=== PATIENT | female | born 1930 | race Caucasian/White ===

== ENCOUNTER 2016-10-10 19:50 | Inpatient (IN) | payer OTHER ==
--- NOTE | 2016-10-10 20:01 | PDOC ---
History of Present Illness <Sakshi Joyner - Last Filed: 10/10/16 21:41> - General History Source: Patient Exam Limitations: No Limitations <SimeoncoronaGinny Wilson I - Last Filed: 10/10/16 22:09> - General Chief Complaint: Syncope/Near Syncope Stated Complaint: SYNCOPE Time Seen by Provider: 10/10/16 19:53 - History of Present Illness Initial Comments: 10/10/16 20:14 Patient is an 85 year old female with significant medical hx of HTN, HLD, osteoporosis and early dementia who is presenting to the ED s/p suspected fall from today. Today the patient went on a walk with her dog down a path towards her son's house. She states that she does not recall the events that followed, except that a nearby neighbor was helping to bring her to the house. The suspected fall was not witnessed nor does the patient recall the event. The patient sustained contusions to her chin and right hand. She also endorses feeling "foggy" but denies any headache. The son states that he was not home at the time and was not able to identify the neighbor or get in touch with them. He also notes that the patient has become more forgetful recently. Patient reports three falls over the past ten days. Her first fall was a mechanical fall that involved the patient tripping over her dog. The second time , the patient fell out of bed and hit her left arm on the waste basket, sustaining a contusion to the area of her right bicep. She states that falling out of bed was unusual for her and reports that she woke up once she hit the waste basket. The patient cannot recall her last tetanus shot. Denies abdominal pain, nausea, vomiting, or weakness. PAST MEDICAL HISTORY: HTN, HLD, osteoporosis, early dementia PAST SURGICAL HISTORY: no significant history FAMILY HISTORY: no pertinent history SOCIAL HISTORY: Pt lives with family and is retired. MEDICATIONS: reviewed ALLERGIES: As per nursing notes General: No fevers or chills, no weakness, no weight loss HEENT: No change in vision. No sore throat,. No ear pain CardioVascular: No chest pain or shortness of breath Respiratory:No cough, or wheezing. Gastrointestinal: no nausea, vomiting, diarrhea or constipation, No rectal bleeding Genitourinary: No dysuria, hematuria, or frequency Musculoskeletal: No joint or muscle pain or swelling Neurologic: Loss of consciousness. No headache, vertigo Psychiatric: nor depression Skin: Bruising to chin, right hand, and left arm. No rashes Endocrine: no increased thirst or abnormal weight change Allergic: no skin or latex allergy All other systems reviewed and normal General: Well-nourished well-developed individual, no acute distress HEENT: Large contusion with soft tissue swelling over the right side of the mandible including the anterior mandible. Tenderness on palpation. No crepitus. Throat: Normal, tonsils normal, no erythema or exudate Neck: Supple, no meningeal signs, no lymphadenopathy Eyes::Pupils equal reactive and round, extraocular motion intact Chest: Nontender to palpation Cardiac: S1-S2 normal, regular rate and rhythm, no murmurs rubs or gallops Respiratory: Lungs clear to auscultation bilateral Abdomen: Soft, nondistended, normal bowel sounds, nontender to palpation diffusely Right Hand: Swelling and ecchymosis over the fifth metacarpal with some tenderness on palpation. Neurovascular intact. Extremities: Left upper arm ecchymosis and swelling of the soft tissue, no bony tenderness. Warm, dry, no cyanosis, clubbing, or edema Skin: No rashes Neuro: Alert and oriented x3, nonfocal exam, grossly intact, normal gait Psych: Normal mood and affect (Sakshi Joyner) 10/10/16 21:04 A portion of this note was documented by scribe services under my direction. I have reviewed the details of the note, within reason, and agree with the documentation. The case summary and management plan written by me. Assessment and plan: This is an 85-year-old female who had a syncopal event prior to coming in. Patient is unable to recall what happened but was out walking her dog and the neighbor brought her back to her son's place where she is visiting. Patient remembers taking the dog out for a walk but does not remember falling or being brought back to her son's place. Patient was noted to have several contusions of her face and hand. Patient had a workup EKG showed sinus rhythm with marked sinus arrhythmia and one long Pause on the EKG. Chest x-ray shows no acute pathology Mandible shows no acute pathology Right hand shows a fracture at the base of the fifth metacarpal that is nondisplaced. Head CT shows no acute pathology just some atrophy consistent with age Otherwise workup unremarkable Patient will be admitted to a inpatient telemetry bed under the hospitalist service. (Ginny Rankin I) Past History <Sakshi Joyner - Last Filed: 10/10/16 21:41> <Ginny Rankin I - Last Filed: 10/10/16 22:09> - Past Medical History Allergies/Adverse Reactions: Allergies Allergy/AdvReac Type Severity Reaction Status Date / Time No Known Allergies Allergy Unverified 10/10/16 19:57 Home Medications: Ambulatory Orders Atorvastatin Ca 10/10/16 Metoprolol Succinate 10/10/16 Restasis 10/10/16 - Vital Signs Last Vital Signs Temp Pulse Resp BP Pulse Ox 98.1 F 81 16 161/87 97 10/10/16 19:58 10/10/16 19:58 10/10/16 19:58 10/10/16 19:58 10/10/16 19:58 Heart Score/ECG Review <Sakshi Joyner - Last Filed: 10/10/16 21:41> <Ginny Rankin I - Last Filed: 10/10/16 22:09> #1 10/10/16 21:42 Poor data quality, interpretation may be adversely affected Sinus rhythm at 76 bpm with marked sinus arrhythmia Possible Left atrial enlargement Abnormal ECG (Sakshi Joyner) ED Treatment Course - LABORATORY CBC & Chemistry Diagram: 10/10/16 20:17 10/10/16 20:17 <Sakshi Joyner - Last Filed: 10/10/16 21:41> - LABORATORY CBC & Chemistry Diagram: 10/10/16 20:17 10/10/16 20:17 <Ginny Rankin I - Last Filed: 10/10/16 22:09> - ADDITIONAL ORDERS Additional order review: Laboratory Results 10/10/16 10/10/16 10/10/16 20:20 20:17 20:17 Sodium 141 Potassium 3.9 Chloride 106 Carbon Dioxide 27 Anion Gap 8 BUN 22 H Creatinine 0.7 Creat Clearance w eGFR > 60 Random Glucose 110 H Calcium 9.5 Total Bilirubin 0.4 AST 25 ALT 14 Alkaline Phosphatase 45 Creatine Kinase 122 Troponin I < 0.03 L Total Protein 7.1 Albumin 4.1 Urine Color Yellow Urine Appearance Cloudy Urine pH 5.5 Ur Specific [place] 1.025 Urine Protein 2+ H Urine Glucose (UA) Negative Urine Ketones Trace Urine Blood 3+ H Urine Nitrite Positive Urine Bilirubin Negative Urine Urobilinogen 1.0 e.u/dl Ur Leukocyte Esterase 2+ H 10/10/16 20:17 RBC 4.51 MCV 92.3 MCHC 34.0 RDW 12.5 MPV 7.4 L Neutrophils % 60.0 Lymphocytes % 28.9 Monocytes % 8.8 Eosinophils % 1.9 Basophils % 0.4 - RADIOLOGY Radiology Studies Ordered: Category Date Time Status HEAD CT WITHOUT CONTRAST [CT] Stat CT Scan 10/10/16 20:02 Completed CHEST X-RAY PORTABLE* [RAD] Stat Radiology 10/10/16 20:02 Taken HAND- RIGHT [RAD] Stat Radiology 10/10/16 21:02 Taken MANDIBLE COMPLETE [RAD] Stat Radiology 10/10/16 20:12 Taken Radiograph Interpretation: 10/10/16 21:[address] Impression: Mild atrophy without evidence of acute intracranial pathology. Reported By: Luis Ellsworth MD (Sakshi Joyner) *DC/Admit/Observation/Transfer <Sakshi Joyner - Last Filed: 10/10/16 21:41> - Discharge Dispostion Admit: Yes <Ginny Rankin I - Last Filed: 10/10/16 22:09> Diagnosis at time of Disposition: Multiple contusions Syncope Qualifiers: Syncope type: unspecified Qualified Code(s): R55 - Syncope and collapse - Discharge Dispostion Condition at time of disposition: Stable - Referrals Referrals: STAFF,NOT ON [Primary Care Provider] - - Attestations Scribe Attestion: 10/10/16 20:27 Documentation prepared by Sakshi Joyner, acting as medical stenographer for Ginny Rankin MD. (Sakshi Joyner)
[2016-10-10 20:32] LABS: BASOPHIL 0.4 % (0-2.0); EOSINOPHIL 1.9 % (0-4.5); MCH 31.4 pg (25.7-33.7); MEAN CELL VOLUME 92.3 fl (80-96); MEAN PLT VOLUME 7.4 fl (7.5-11.1); PLATELET COUNT 228 K/MM3 (134-434); RDW 12.5 % (11.6-15.6); WHITE BLOOD COUNT 6.7 K/mm3 (4.0-10.8)
[2016-10-10 20:48] LABS: ALBUMIN 4.1 g/dl (3.5-5.0); ALK PHOS 45 U/L (32-92); ANION GAP 8 (8-16); CALCIUM 9.5 mg/dl (8.4-10.2); CO2 27 mmol/L (22-28); COCKROFT - GAULT 52.3175; CREATININE 0.7 mg/dl (0.6-1.3); GLUCOSE,RANDOM 110 mg/dl (74-106); SGOT/AST 25 U/L (10-42); SGPT/ALT 14 U/L (10-40); TOT PROT 7.1 g/dl (6.4-8.3)
[2016-10-10 20:49] LABS: CPK(DFH) 122 IU/L (26-140)
[2016-10-10 20:58] LABS: TROPONIN I (DFP) < 0.03 ng/ml (0.03-0.50)
[2016-10-10 21:19] LABS: PH,URINE 5.5 (4.5-8); URINE APPEARANCE Cloudy; URINE BILIRUBIN Negative (NEGATIVE); URINE BLOOD 3+ (NEGATIVE); URINE COLOR YELLOW; URINE GLUCOSE (UA) Negative (NEGATIVE); URINE KETONE Trace (NEGATIVE); URINE LEUK ESTERASE 2+ (NEGATIVE); URINE NITRITE Positive (NEGATIVE); URINE PROTEIN 2+ (NEGATIVE); URINE UROBILINOGEN 1.0 E.U/dl (0.2-1.0)
[2016-10-10 21:43] LABS: BILIRUBIN,TOTAL 0.4 mg/dl (0.2-1.0)
--- NOTE | 2016-10-10 22:12 | PDOC ---
*Physical Exam - Vital Signs Last Vital Signs Temp Pulse Resp BP Pulse Ox 98.1 F 81 16 161/87 97 10/10/16 19:58 10/10/16 19:58 10/10/16 19:58 10/10/16 19:58 10/10/16 19:58 ED Treatment Course - LABORATORY CBC & Chemistry Diagram: 10/10/16 20:17 10/10/16 20:17 - ADDITIONAL ORDERS Additional order review: Laboratory Results 10/10/16 10/10/16 10/10/16 20:20 20:17 20:17 Sodium 141 Potassium 3.9 Chloride 106 Carbon Dioxide 27 Anion Gap 8 BUN 22 H Creatinine 0.7 Creat Clearance w eGFR > 60 Random Glucose 110 H Calcium 9.5 Total Bilirubin 0.4 AST 25 ALT 14 Alkaline Phosphatase 45 Creatine Kinase 122 Troponin I < 0.03 L Total Protein 7.1 Albumin 4.1 Urine Color Yellow Urine Appearance Cloudy Urine pH 5.5 Ur Specific [place] 1.025 Urine Protein 2+ H Urine Glucose (UA) Negative Urine Ketones Trace Urine Blood 3+ H Urine Nitrite Positive Urine Bilirubin Negative Urine Urobilinogen 1.0 e.u/dl Ur Leukocyte Esterase 2+ H 10/10/16 20:17 RBC 4.51 MCV 92.3 MCHC 34.0 RDW 12.5 MPV 7.4 L Neutrophils % 60.0 Lymphocytes % 28.9 Monocytes % 8.8 Eosinophils % 1.9 Basophils % 0.4 - RADIOLOGY Radiology Studies Ordered: Category Date Time Status HEAD CT WITHOUT CONTRAST [CT] Stat CT Scan 10/10/16 20:02 Completed CHEST X-RAY PORTABLE* [RAD] Stat Radiology 10/10/16 20:02 Taken HAND- RIGHT [RAD] Stat Radiology 10/10/16 21:02 Taken MANDIBLE COMPLETE [RAD] Stat Radiology 10/10/16 20:12 Taken Progress Note - Progress Note Progress Note: Procedure note OCL ulnar gutter splint placed on right hand by Natasha Neurovascular post splint application intact. *DC/Admit/Observation/Transfer Diagnosis at time of Disposition: Multiple contusions Syncope Qualifiers: Syncope type: unspecified Qualified Code(s): R55 - Syncope and collapse Closed fracture of right hand Qualifiers: Encounter type: initial encounter Qualified Code(s): S62.91XA - Unspecified fracture of right wrist and hand, initial encounter for closed fracture - Discharge Dispostion Condition at time of disposition: Stable Decision to Admit order Date/Time: Decision to Admit Order Category Date Time Status Decision to Admit to Hospital Routine Admission 10/10/16 22:09 Active - Referrals Referrals: STAFF,NOT ON [Primary Care Provider] - - Patient Instructions - Post Discharge Activity
[2016-10-10 22:39] LABS: URINE RBC >100 /hpf (0-3); URINE WBC 50-100 (3-5)
[2016-10-10 22:40] LABS: URINE BACTERIA FEW /hpf (NEGATIVE)
[2016-10-10] MEDS ORDERED: ACETAMINOPHEN 325 MG TABLET (FP) PO ONE (23:18)
[2016-10-10] MEDS ORDERED: ACETAMINOPHEN 325 MG TABLET (FP) ONE (23:22)
[2016-10-11 00:24] VITALS: BMI 21.0
[2016-10-11] MEDS ORDERED: SODIUM CHLORIDE 1,000 ML IV SCH (00:30)
[2016-10-11] MEDS: CEFTRIAXONE 50 ML IVPB SCH ×2 (00:36→09:07)
--- NOTE | 2016-10-11 00:38 | HP ---
CHIEF COMPLAINT: syncope PCP: noemy HISTORY OF PRESENT ILLNESS: This is a 85 year old female with a past medical history of HTN, HLD, osteoporosis, early dementia who presented to the ED s/p likely syncopal episode. Pt remembers going out for a walk with the dog and then remembers walking down the hill towards her son's house and being inside and a neighbor having helped her but does not recall events in between. Pt sustained a bruise on her chin and an injury to her right hand during the missed time. Xrays revealed a 5th metacarpal fracture. Pt also reports 2 other falls in the last 2 weeks, one when she tripped and fell while walking the dog and another when she fell out of bed, waking up when her arm hit the wastebasket on the floor. Pt reports that she is feeling well on exam. Denies CP, SOB, palpitations, abdominal pain, N/V/D. She does report some constipation yesterday but did have a BM today. Pt denies dysuria; states she always has frequency but does report something hasn't been right with her urination. ER course was notable for: (1) fracture R 5th metacarpal (2) CT head without acute changes (3) troponin negative Recent Travel: pt denies PAST MEDICAL HISTORY: HTN HLD osteoporosis early dementia denies h/o irregular heartbeat Social History: Smoking: Quit 30 years ago Alcohol: 1-2 glasses of wine daily Drugs: pt denies Family History: mother age 83, old age father age 50, cirrhosis due to a "bad blood transfusion", no ETOH abuse sister with cerebral palsy 2 children alive and well Allergies No Known Allergies Allergy (Unverified 10/10/16 19:57) HOME MEDICATIONS: 3 Medication Instructions Recorded Lipitor 20 mg PO HS 10/10/16 Metoprolol Tartrate 25 mg PO BID 10/10/16 Restasis 1 drop PRN 10/10/16 Calcium Magnesium + D Tablet 1 tab PO DAILY 10/11/16 Citalopram HBr 10 mg PO DAILY 10/11/16 Omeprazole 40 mg PO DAILY 10/11/16 REVIEW OF SYSTEMS CONSTITUTIONAL: Absent: fever, chills, diaphoresis, generalized weakness, malaise, loss of appetite, weight change HEENT: Absent: rhinorrhea, nasal congestion, throat pain, throat swelling, difficulty swallowing, mouth swelling, ear pain, eye pain, visual changes CARDIOVASCULAR: Present: syncope Absent: chest pain, palpitations, irregular heart rate, lightheadedness, peripheral edema RESPIRATORY: Absent: cough, shortness of breath, dyspnea with exertion, orthopnea, wheezing, stridor, hemoptysis GASTROINTESTINAL: Absent: abdominal pain, abdominal distension, nausea, vomiting, diarrhea, constipation, melena, hematochezia GENITOURINARY: Absent: dysuria, frequency, urgency, hesitancy, hematuria, flank pain, genital pain MUSCULOSKELETAL: Present: R hand pain Absent: myalgia, arthralgia, joint swelling, back pain, neck pain SKIN: Present: ecchymosis right chin Absent: rash, itching, pallor HEMATOLOGIC/IMMUNOLOGIC: Absent: easy bleeding, easy bruising, lymphadenopathy, frequent infections ENDOCRINE: Absent: unexplained weight gain, unexplained weight loss, heat intolerance, cold intolerance NEUROLOGIC: Absent: headache, focal weakness or paresthesias, dizziness, unsteady gait, seizure, mental status changes, bladder or bowel incontinence PSYCHIATRIC: Absent: anxiety, depression, suicidal or homicidal ideation, hallucinations. PHYSICAL EXAMINATION Vital Signs - 24 hr 3 10/10/16 10/10/16 10/11/16 23:20 23:51 00:31 Temperature 98.6 F Pulse Rate 87 Pulse Rate [ 87 Apical] Respiratory 16 16 18 Rate Blood Pressure 125/62 Blood Pressure 122/62 [Arm] O2 Sat by Pulse 97 97 Oximetry (%) GENERAL: Awake, alert, and fully oriented, in no acute distress. HEAD: Normal with no signs of trauma. EYES: Pupils equal, round and reactive to light, extraocular movements intact, sclera anicteric, conjunctiva clear. No lid lag. EARS, NOSE, THROAT: Ears normal, nares patent, oropharynx clear without exudates. Moist mucous membranes. Ecchymosis noted to right chin with mild STS NECK: Normal range of motion, supple without lymphadenopathy, JVD, or masses. LUNGS: Breath sounds equal, clear to auscultation bilaterally. No wheezes, and no crackles. No accessory muscle use. HEART: Regular rate and rhythm, normal S1 and S2 without murmur, rub or gallop. ABDOMEN: Soft, nontender, not distended, normoactive bowel sounds, no guarding, no rebound, no masses. No hepatomegaly or splenomegaly. MUSCULOSKELETAL: Normal range of motion at all joints. No bony deformities or tenderness. No CVA tenderness. UPPER EXTREMITIES: 2+ pulses, warm, well-perfused. No cyanosis. No clubbing. No peripheral edema. Right hand wrist and forearm immobilized in ulnar gutter. No apparent swelling of fingers LOWER EXTREMITIES: 2+ pulses, warm, well-perfused. No calf tenderness. No peripheral edema. NEUROLOGICAL: Cranial nerves II-XII intact. Normal speech. Normal gait. PSYCHIATRIC: Cooperative. Good eye contact. Appropriate mood and affect. SKIN: Warm, dry, normal turgor, no rashes or lesions noted, normal capillary refill. Laboratory Results - last 24 hr 3 10/10/16 10/10/16 10/10/16 20:17 20:17 20:17 WBC 6.7 RBC 4.51 Hgb 14.1 Hct 41.6 MCV 92.3 MCHC 34.0 RDW 12.5 Plt Count 228 MPV 7.4 L Neutrophils % 60.0 Lymphocytes % 28.9 Monocytes % 8.8 Eosinophils % 1.9 Basophils % 0.4 Sodium 141 Potassium 3.9 Chloride 106 Carbon Dioxide 27 Anion Gap 8 BUN 22 H Creatinine 0.7 Creat Clearance w eGFR > 60 Random Glucose 110 H Calcium 9.5 Total Bilirubin 0.4 AST 25 ALT 14 Alkaline Phosphatase 45 Creatine Kinase 122 Troponin I < 0.03 L Total Protein 7.1 Albumin 4.1 Urine Color Urine Appearance Urine pH Ur Specific [place] Urine Protein Urine Glucose (UA) Urine Ketones Urine Blood Urine Nitrite Urine Bilirubin Urine Urobilinogen Ur Leukocyte Esterase Urine RBC Urine WBC Ur Epithelial Cells Urine Bacteria 3 Urine Color Yellow 10/10/16 20:20 Urine Appearance Cloudy 10/10/16 20:20 Urine pH 5.5 (4.5-8) 10/10/16 20:20 Ur Specific [place] 1.025 (1.005-1.025) 10/10/16 20:20 Urine Protein 2+ (NEGATIVE) H 10/10/16 20:20 Urine Glucose (UA) Negative (NEGATIVE) 10/10/16 20:20 Urine Ketones Trace (NEGATIVE) 10/10/16 20:20 Urine Blood 3+ (NEGATIVE) H 10/10/16 20:20 Urine Nitrite Positive (NEGATIVE) 10/10/16 20:20 Urine Bilirubin Negative (NEGATIVE) 10/10/16 20:20 Ur Leukocyte Esterase 2+ (NEGATIVE) H 10/10/16 20:20 Urine RBC >100 /hpf (0-3) 10/10/16 20:20 Urine WBC 50-100 (3-5) 10/10/16 20:20 Ur Epithelial Cells 3-5 /HPF 10/10/16 20:20 Urine Bacteria Few /hpf (NEGATIVE) 10/10/16 20:20 ECG: Sinus rhythm with pause; rate 76, QTC 468, possible L atrial enlargement, left axis deviation Imaging Portable chest x-ray AP sitting. No prior is available for comparison. The cardiac silhouette is slightly enlarged. There is suggestion of a moderate- sized hiatus hernia and the right lower chest, medially. Mild unfolding of the aortic arch. Mild atelectatic changes in the right lung base, medially. The rest of the lung is clear. Mediastinum is osseous osseous structures appear intact Impression: There is suggestion of a moderate size hiatus hernia the right lower chest, medially with adjacent atelectatic changes in the right lung base. Correlation with PA and lateral view of the chest could be obtained for further evaluation. X-ray of the mandible, 6 views. No gross fracture is identified. Limited visualization of the TM joints enhancing could not be adequately evaluated. Visualized paranasal sinuses are well aerated Impression: Limited examination, as described above without gross evidence of a fracture. Correlate clinically for further evaluation. X-ray of the right hand, 3 views. There is evidence of osteopenia. There is a minimally displaced fracture in proximal shaft of the fifth metacarpal bone. Mild osteoarthritic changes are present. Impression: Minimally displaced fracture in proximal shaft of the fifth metacarpal bone. CT scan of the brain without intravenous contrast. No prior is available for comparison. There is moderate atrophy and ventricular dilatation. No mass lesion, gross acute infarct or intracranial hemorrhage is identified. There is no shift of the midline structures. The calvarium is intact. Visualized paranasal sinuses and mastoid air cells are well aerated. Calcification of the cavernous carotid arteries are present. Impression: Moderate atrophy without evidence of acute intracranial pathology ASSESSMENT/PLAN: 85yF with PMH HTN, HLD, osteoporosis, early dementia presented to the ED s/p fall, likely syncope. She is being admitted for further treatment and evaluation. Syncope - cardiac enzymes neg x 1, trend x 2 more - cardiac monitoring to r/o arrhythmia/ectopy - echocardiogram - ECG revealed one pause, cont to monitor, consider hold metoprolol if any repeat - orthostatic vital signs in AM when awakes metacarpal fracture - cont ulna gutter, elevation, ice - ortho consult UTI - ceftriaxone 1g daily, follow culture HTN - cont home metoprolol, consider reducing dose HLD - cont home lipitor osteoporosis - cont calcium, f/u with PCP DVT PPX - heparin 5000u TID FEN - NS @ 75cc/hr - BMP in am with mag and phos - low sodium diet as tolerated Dispo: Pt currently requires inpatient management of her emergent condition. Visit type - Emergency Visit Emergency Visit: Yes ED Registration Date: 10/10/16 Care time: The patient presented to the Emergency Department on the above date and was hospitalized for further evaluation of their emergent condition. - New Patient This patient is new to me today: Yes Date on this admission: 10/11/16 - Critical Care Critical Care patient: No
[2016-10-11 04:36] LABS: TROPONIN I < 0.02 ng/ml (0.00-0.05)
[2016-10-11] MEDS ORDERED: SYSTANE OU PRN (05:25)
[2016-10-11] MEDS: HEPARIN NA (PORCINE) 5,000 UNITS/ML 1ML VIAL SQ SCH ×3 (05:55→21:21)
[2016-10-11] MEDS ORDERED: ACETAMINOPHEN 325 MG TABLET (FP) ONE (06:12)
[2016-10-11] MEDS: CALCIUM 500MG/VIT-D 200 UNITS COMBO TABLET (FP) PO SCH ×2 (09:58→21:21)
[2016-10-11] MEDS: PANTOPRAZOLE 40 MG TABLET (FP) PO SCH (09:58)
[2016-10-11] MEDS: METOPROLOL TARTRATE 25 MG TABLET (FP) PO SCH ×2 (09:58→21:22)
[2016-10-11] MEDS: CITALOPRAM HYDROBROMIDE 10 MG TABLET (FP) PO SCH (09:58)
[2016-10-11] MEDS: MAGNESIUM OXIDE 400 MG TABLET (FP) PO SCH (09:58)
[2016-10-11] MEDS ORDERED: [UNRECOGNIZED DRUG - OTHER] PO SCH (10:00)
[2016-10-11] MEDS ORDERED: CALCIUM MAGNESIUM PO SCH (10:00)
--- NOTE | 2016-10-11 12:14 | PN ---
Physical Exam: SUBJECTIVE: Patient seen and examined, patient reports feeling well, reports pain to left hand denies any chest pain and shortness of breath. OBJECTIVE: patient is a 85 year old female with a past medical history of hiatal hernia, HTN, HLD, osteoporosis, and early dementia. Patient was admitted from the emergency department for syncopal episode and right hand fracture. Vital Signs Period Temp Pulse Resp BP Sys/Barnard Pulse Ox Last 24 Hr 98.4 F-98.6 F 81-95 16-19 121-136/50-62 93-97 GENERAL: The patient is awake, alert, and fully oriented, in no acute distress. HEAD: echymosis to right chin EYES: PERRL, extraocular movements intact, sclera anicteric, conjunctiva clear. No ptosis. ENT: Ears normal, nares patent, oropharynx clear without exudates, moist mucous membranes. NECK: Trachea midline, full range of motion, supple. LUNGS: Breath sounds equal, clear to auscultation bilaterally, no wheezes, no crackles, no accessory muscle use. HEART: Regular rate and rhythm, S1, S2, 2/6 systolic murmur, rub or gallop. ABDOMEN: Soft, nontender, nondistended, normoactive bowel sounds, no guarding, no rebound, no hepatosplenomegaly, no masses. EXTREMITIES: 2+ pulses, warm, well-perfused, no edema. RIGHT UPPER EXTREMITY: ulna hard splint in placed, less than 3 second capillary refill, + 3 radial pulse LEFT UPPER EXTREMITY: no deformity, less than 3 second capillary refill, + 3 radial pulse, no point tenderness noted, pain upon flexion of the left wrist. NEUROLOGICAL: Cranial nerves II through XII grossly intact. Normal speech, gait not observed. PSYCH: Normal mood, normal affect. SKIN: Warm, dry, normal turgor, no rashes or lesions noted Laboratory Results - last 24 hr 10/11/16 01:10 Creatine Kinase 104 Troponin I < 0.02 Active Medications Generic Name Dose Route Start Last Admin Trade Name Freq PRN Reason Stop Dose Admin Atorvastatin Calcium 20 mg 10/11/16 22:00 Lipitor - PO HS AIME Calcium Carbonate/Cholecalciferol 1 tab 10/11/16 10:00 10/11/16 09:58 Os-Jozef 500+D - PO 1 tab BID AIME Administration Citalopram Hydrobromide 10 mg 10/11/16 10:00 10/11/16 09:58 Celexa - PO 10 mg DAILY AIME Administration Heparin Sodium (Porcine) 5,000 unit 10/11/16 06:00 10/11/16 05:55 Heparin - SQ 5,000 unit TID AIME Administration Ceftriaxone Sodium 50 mls @ 100 mls/hr 10/11/16 00:30 10/11/16 09:07 Rocephin 1gm Ivpb (Pre-Docked) IVPB 100 mls/hr DAILY AIME Administration Magnesium Oxide 400 mg 10/11/16 10:00 10/11/16 09:58 Mag-Ox - PO 400 mg DAILY AIME Administration Metoprolol Tartrate 25 mg 10/11/16 10:00 10/11/16 09:58 Lopressor - PO 25 mg BID AIME Administration Non-Formulary Medication 1 drop 10/11/16 05:25 Systane OU QID PRN dry eyes Pantoprazole Sodium 40 mg 10/11/16 10:00 10/11/16 09:58 Protonix - PO 40 mg DAILY AIME Administration ECG: Sinus rhythm with pause; rate 76, QTC 468, possible L atrial enlargement, left axis deviation Imaging Portable chest x-ray AP: there is suggestion of a moderate size hiatus hernia the right lower chest, medially with adjacent atelectatic changes in the right lung base. X-ray of the mandible, 6 views. no gross evidence of a fracture. X-ray of the right hand, 3 views. Minimally displaced fracture in proximal shaft of the fifth metacarpal bone. CT scan of the brain without intravenous contrast: Moderate atrophy without evidence of acute intracranial pathology ASSESSMENT/PLAN: 1) card:Syncope - troponin x 2 wnl, pending 3rd - ekg reviewed,sinus rhythmn less than 1 second pause, left axis deviation - pending echo and carotid dopplers - records obtained from pt's private hazardous material specialist, Dr Dorado ([place], [place]), last lexiscan stress test 2013, no ischemia Echo (2012) diastolic dysfunction, mild mr & tr, lv WNL - orthostatic vital signs reviewed, patient is noted to be orthostatics - appreciate of input cardiology ([facility]) hypertension - continue metropolol, strict b/p monitoring hyperlipidemia - continue lipitor 2) ortho metacarpal fracture - keep ulna split in place, elevation - xray of left wrist, no fracture noted - prn tylenol - ortho (corado) consulted and following 3) UTI - continue ceftriaxone 1g daily, until urine culture is resulted DVT PPX - heparin 5000u TID - zantac FEN - low sodium diet - replete lytes prn Dispo: Pt currently requires inpatient management of her emergent condition. Visit type - Emergency Visit Emergency Visit: Yes ED Registration Date: 10/10/16 Care time: The patient presented to the Emergency Department on the above date and was hospitalized for further evaluation of their emergent condition. - New Patient This patient is new to me today: Yes Date on this admission: 10/11/16 - Critical Care Critical Care patient: Yes Total Critical Care Time (in minutes): 45 Critical Care Statement: The care of this patient involved high complexity decision making to prevent further life threatening deterioration of the patient 's condition and/or to evalute & treat vital organ system(s) failure or risk of failure. - Discharge Referral Referred to [facility] Med P.C.: No
--- NOTE | 2016-10-11 12:34 | CON.ORTH ---
Consult Consult Specialty:: Orthopedics - History of Present Illness Chief Complaint: Hand and wrist pain History of Present Illness: 85 y/o female with a PMHx significant for HTN, HLD admitted s/p multiple falls at home. Patient and her family state that within the last 10 days she has had 3 witnessed falls at home. The first was while walking her dog, the second while trying to get into bed and the 3rd while getting out of the car with groceries. The patient had had right hand pain since. Also having pain to the dorsal left wrist. She has also noted mild pain and bruising to the left shoulder. No numbness/tingling. No other complaints. Previously had a left wrist fracture. No ongoing issues since. - History Source History Provided By: Patient, Family Member Limitations to Obtaining History: No Limitations - Past Medical History Cardio/Vascular: Yes: HTN, Hyperlipdemia - Alcohol/Substance Use Hx Alcohol Use: No History of Substance Use: reports: None - Smoking History Smoking history: Former smoker Have you smoked in the past 12 months: No Home Medications - Allergies Allergies/Adverse Reactions: Allergies Allergy/AdvReac Type Severity Reaction Status Date / Time No Known Allergies Allergy Unverified 10/10/16 19:57 - Home Medications Home Medications: Ambulatory Orders Lipitor 20 mg PO HS 10/10/16 Metoprolol Tartrate 25 mg PO BID 10/10/16 Restasis 1 drop PRN 10/10/16 Calcium Magnesium + D Tablet 1 tab PO DAILY 10/11/16 Citalopram HBr 10 mg PO DAILY 10/11/16 Omeprazole 40 mg PO DAILY 10/11/16 Cefuroxime Axetil [Ceftin -] 250 mg PO BID #14 tablet 10/12/16 Family Disease History - Family Disease History Family History: Unremarkable Review of Systems - Review of Systems Constitutional: reports: No Symptoms Eyes: reports: No Symptoms HENT: reports: No Symptoms Neck: reports: No Symptoms Cardiovascular: reports: No Symptoms Respiratory: reports: No Symptoms Gastrointestinal: reports: No Symptoms Genitourinary: reports: No Symptoms Musculoskeletal: reports: Joint Pain Integumentary: reports: No Symptoms Neurological: reports: No Symptoms Physical Exam for Ortho Vital Signs: Vital Signs Temperature 98.4 F 10/11/16 06:00 Pulse Rate 95 H 10/11/16 06:10 Respiratory Rate 18 10/11/16 07:47 Blood Pressure 121/59 10/11/16 06:10 O2 Sat by Pulse Oximetry (%) 93 L 10/11/16 07:47 Constitutional: Yes: Well Nourished, No Distress, Calm Neck: Yes: WNL, Supple, Trachea Midline Cardiovascular: Yes: WNL, Regular Rate and Rhythm Respiratory: Yes: WNL, Regular Neurological: Yes: WNL, Alert, Oriented - Upper Extremity Shoulder: Yes: Left, Ecchymosis, Pain, Tenderness (proximal humerus). No: Limited ROM, Swelling Wrist: Yes: Left, Limited ROM, Pain, Swelling (dorsally), Tenderness (distal ulna and radius). No: Ecchymosis Hand: Yes: Right, Limited ROM, Pain, Swelling, Tenderness (proximal 5th metacarpal) - Affected Extremity Motor Strength: 5/5: Right Arm (LUE and RUE) Peripheral Pulses WNL: Yes Peripheral Pulses: 2+ Left Radial, 2+ Right Radial Neuro/Vascular Assessment: Yes: Warm, [place], Normal Sensation Imaging - Results X-ray: Report Reviewed, Image Reviewed (R hand x-ray demonstrating minimally displaced fracture of the base of the 5th metacarpal) Problem List - Problems (1) Closed right hand fracture Code(s): S62.91XA - UNSP FRACTURE OF RIGHT WRIST AND HAND, INIT FOR CLOS FX Qualifiers: Encounter type: initial encounter Qualified Code(s): S62.91XA - Unspecified fracture of right wrist and hand, initial encounter for closed fracture Assessment/Plan 85 y/o female with a PMHx significant for HTN and HLD admitted s/p multiple falls at home -I reviewed with the patient and her family that there is a proximal 5th metacarpal fracture present. We reviewed the relevant anatomy and that this fracture heals on its own in 6-8 weeks. The patient was put back into an ulnar gutter splint today. Continue to ice, rest and elevate the hand as needed. She will remain in the splint and follow up in 1-2 weeks with repeat x-rays of the right hand to ensure there is no further displacement. The [place] from out of the area. She will obtain a disc of the x-ray images and follow up with her own orthopedic surgeon when she returns home. -The patient is also having swelling/pain/ecchymosis to the left wrist and shoulder. X-rays were obtained, pending. -Will follow up on results. -Case discussed with Dr. Juarez who was in agreement.
[2016-10-11] MEDS: ACETAMINOPHEN 325 MG TABLET (FP) PO PRN (12:47)
--- NOTE | 2016-10-11 16:55 | EKG ---
Test Reason : Blood Pressure : / mmHG Vent. Rate : 076 BPM Atrial Rate : 076 BPM P-R Int : 160 ms QRS Dur : 080 ms QT Int : 416 ms P-R-T Axes : 040 -34 030 degrees QTc Int : 468 ms SINUS RHYTHM with non-conducted PAC POSSIBLE LEFT ATRIAL ENLARGEMENT LEFT AXIS DEVIATION ABNORMAL ECG NO PREVIOUS ECGS AVAILABLE Confirmed by JANIA BLANCAS MD ([id number]) on 10/11/2016 4:55:16 PM Referred By: YOSEF Confirmed By:JANIA BLANCAS MD
--- NOTE | 2016-10-11 17:38 | CONSULT ---
Consult Consult Specialty:: Cardiology Referred by:: Zuleyka Baca Reason for Consultation:: Syncope - History of Present Illness Chief Complaint: syncope History of Present Illness: 85 yo female with past tobacco, hx HTN, HLD, TIA 30 ya, palpitations with known APCS/PVC on holter form 05/18, normal stress tests in past (last on in 07/16), known nl EF and mild-mod AI (last echo in 04/16), known, mild carotid disease - > < 40% plaque on the right (04/16), recent falls -> 3 of them (one out of bed, one after tripping on dog an done while standing on driveway -. pt didn't remember that one to tell me), here after a presumed syncope. Pt was walking her puppy near her son's house, decided to cut through the property -. found herself in the house with the au-pair giving her some ice for her face. Reportedly a neighbour brought her in. She has no recollection of the events immediately preceding the fall/syncope. She denies baseline CP, but gets tired/dyspneic with exertion Denies recent palpitations or dizziness. She however has been very forgetful lately, per her family - History Source History Provided By: Patient - Past Medical History [employer] CUT[employer] HELPER: Yes: TIA (30 ya), Other (memory issues -. mild dementia) Cardio/Vascular: Yes: HTN, Hyperlipdemia, Other (Palpitations -. 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 Home Medications - Allergies Allergies/Adverse Reactions: Allergies Allergy/AdvReac Type Severity Reaction Status Date / Time No Known Allergies Allergy Unverified 10/10/16 19:57 - Home Medications Home Medications: Ambulatory Orders Lipitor 20 mg PO HS 10/10/16 Metoprolol Tartrate 25 mg PO BID 10/10/16 Restasis 1 drop PRN 10/10/16 Calcium Magnesium + D Tablet 1 tab PO DAILY 10/11/16 Citalopram HBr 10 mg PO DAILY 10/11/16 Omeprazole 40 mg PO DAILY 10/11/16 Family Disease History - Family Disease History Family History: Denies (premature CAD) Review of Systems - Review of Systems Constitutional: reports: Other (fatigue) Eyes: reports: No Symptoms HENT: reports: No Symptoms Neck: reports: Pain on Movement Cardiovascular: reports: Palpitations (but not recently) Respiratory: reports: SOB on Exertion Gastrointestinal: reports: No Symptoms Genitourinary: reports: No Symptoms Musculoskeletal: reports: Back Pain, Other (falls) Neurological: reports: Syncope, Weakness Psychiatric: reports: Depression Physical Exam Vital Signs: Vital Signs Temperature 98.4 F 10/11/16 06:00 Pulse Rate 95 H 10/11/16 06:10 Respiratory Rate 18 10/11/16 07:47 Blood Pressure 121/59 10/11/16 06:10 O2 Sat by Pulse Oximetry (%) 93 L 10/11/16 07:47 Constitutional: Yes: No Distress Eyes: Yes: Conjunctiva Clear HENT: Yes: Other (bruise over lover jaw/neck o the right) Cardiovascular: Yes: Regular Rate and Rhythm, Murmur (soft MARY ANNE) Respiratory: Yes: CTA Bilaterally Gastrointestinal: Yes: Normal Bowel Sounds, Soft. No: Tenderness Musculoskeletal: Yes: Other (right forearm /hand dressed) Edema: No Peripheral Pulses WNL: Yes Neurological: Yes: Alert, Oriented Psychiatric: Yes: Alert, Oriented Imaging - Results Chest X-ray: Report Reviewed, Image Reviewed EKG: Report Reviewed, Image Reviewed (SR, blocked APC) Other: Other (Tele -. SR, ST 120s, APCs -> some blocked, PVCs Echo -> Nl LV size and systolic function, mild DD, mild-mod AI, MAC with trace MR, Nl PASP) Assessment/Plan 85 yo female with the above history here with presumed syncopal episode. She has no recollection of the event (except having made the decision to take sort- cut through sons' property), making it hard to know whether she had a prodrome or not, So far, no evidence of bradyarrhythmia/pauses to explain syncope. Pt with PVCs , APCs -. some blocked. 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 Has had stress tests in past -> last one in 07/2013 was normal No evidence of structural heart disease, severe enough to explain syncope -. echo with mild-mod AI No evidence of neuro etiology either -. head CT w.o acute changes May have a UTI Has a proximal 5th metacarpal fracture -. seen by ortho -. rec. follow-up Rec: Cont monitor overnight Cont current meds Keep hydrated Check TFTs If ok overnight, may be d/jose alejandro in AM from cardiac standpoint -. plan to follo with malted milk supervisor for holter/event-recorder or ILR an dpossible repeat stress test Thanks! D/w pt and at length at bedside D/w son, Aj, on the phone D/w Zuleyka rolon
[2016-10-11 18:45] LABS: EOSINOPHIL 1.8 % (0-4.5); MCH 31.4 pg (25.7-33.7); MCHC 33.6 g/dl (32.0-36.0); MEAN CELL VOLUME 93.5 fl (80-96); MEAN PLT VOLUME 7.9 fl (7.5-11.1); NEUTROPHILS 56.2 % (42.8-82.8); PLATELET COUNT 223 K/MM3 (134-434); RDW 12.4 % (11.6-15.6); WHITE BLOOD COUNT 5.2 K/mm3 (4.0-10.8)
[2016-10-11 18:55] LABS: ALBUMIN 3.6 g/dl (3.5-5.0); ALK PHOS 42 U/L (32-92); ANION GAP 8 (8-16); BILIRUBIN,TOTAL 0.7 mg/dl (0.2-1.0); CALCIUM 9.3 mg/dl (8.4-10.2); CO2 28 mmol/L (22-28); CREATININE 0.7 mg/dl (0.6-1.3); GLUCOSE,RANDOM 103 mg/dl (74-106); MAGNESIUM 1.9 mg/dL (1.8-2.4); PHOSPHOROUS 3.9 mg/dl (2.5-4.6); SGOT/AST 22 U/L (10-42); SGPT/ALT 13 U/L (10-40); TOT PROT 6.5 g/dl (6.4-8.3)
[2016-10-11 19:18] LABS: CPK(DFH) 90 IU/L (26-140)
[2016-10-11 19:52] LABS: TROPONIN I (DFP) < 0.03 ng/ml (0.03-0.50)
[2016-10-11] MEDS ORDERED: ATORVASTATIN CA 20 MG TABLET (FP) PO SCH (22:00)
[2016-10-12] MEDS: HEPARIN NA (PORCINE) 5,000 UNITS/ML 1ML VIAL SQ SCH (07:01)
--- NOTE | 2016-10-12 07:50 | PN ---
Progress Note, Physician History of Present Illness: No events overnight. No significant arrhythmias on telemetry. - Current Medication List Current Medications: Active Medications Acetaminophen (Tylenol -) 650 mg PO Q4H PRN PRN Reason: FEVER OR PAIN Last Admin: 10/11/16 12:47 Dose: 650 mg Atorvastatin Calcium (Lipitor -) 20 mg PO HS [facility] Last Admin: 10/11/16 21:22 Dose: Not Given Calcium Carbonate/Cholecalciferol (Os-Jozef 500+D -) 1 tab PO BID [facility] Last Admin: 10/11/16 21:21 Dose: Not Given Citalopram Hydrobromide (Celexa -) 10 mg PO DAILY [facility] Last Admin: 10/11/16 09:58 Dose: 10 mg Heparin Sodium (Porcine) (Heparin -) 5,000 unit SQ TID [facility] Last Admin: 10/12/16 07:01 Dose: 5,000 unit Ceftriaxone Sodium (Rocephin 1gm Ivpb (Pre-Docked)) 50 mls @ 100 mls/hr IVPB DAILY [facility] Last Admin: 10/11/16 09:07 Dose: 100 mls/hr Magnesium Oxide (Mag-Ox -) 400 mg PO DAILY [facility] Last Admin: 10/11/16 09:58 Dose: 400 mg Metoprolol Tartrate (Lopressor -) 25 mg PO BID [facility] Last Admin: 10/11/16 21:22 Dose: 25 mg Non-Formulary Medication (Systane) 1 drop OU QID PRN PRN Reason: dry eyes Pantoprazole Sodium (Protonix -) 40 mg PO DAILY [facility] Last Admin: 10/11/16 09:58 Dose: 40 mg - Objective Vital Signs: Vital Signs Temperature 98.8 F 10/12/16 06:00 Pulse Rate 77 10/12/16 06:00 Respiratory Rate 18 10/12/16 06:00 Blood Pressure 134/51 10/12/16 06:00 O2 Sat by Pulse Oximetry (%) 95 10/11/16 22:15 Constitutional: Yes: Well Nourished, No Distress Eyes: Yes: Conjunctiva Clear, EOM Intact Cardiovascular: Yes: Regular Rate and Rhythm. No: JVD, Murmur Respiratory: Yes: CTA Bilaterally Gastrointestinal: Yes: Normal Bowel Sounds, Soft. No: Tenderness Edema: No Neurological: Yes: Alert, Oriented, Cran Nerves II-XII Intact Psychiatric: Yes: Alert, Oriented Labs: CBC, BMP 10/11/16 14:24 10/11/16 14:24 Assessment/Plan 85 yo female syncope. No significant arrhythmias noted on telemetry overnight. No evidence of ACS or CHF. Prior stress test in 07/2013 was reportedly normal. No evidence of structural heart disease, severe enough to explain syncope -> echo on 10/11 with mild-mod AR Head CT with acute changes Sustained proximal 5th metacarpal fracture -> seen by ortho RECS: Patient is clinically stable from cardiac standpoint and may be discharged with outpatient follow-up with her anthropology department chair at [facility] May need outpatient Holter monitor/event recorder, or implantable loop recorder. However, will defer decision to patient's anthropology department chair. Will see prn. Please call with questions.
[2016-10-12] MEDS: ACETAMINOPHEN 325 MG TABLET (FP) PO PRN (08:29)
[2016-10-12 08:40] LABS: CPK(DFH) 65 IU/L (26-140)
[2016-10-12 09:06] LABS: TROPONIN I (DFP) < 0.03 ng/ml (0.03-0.50)
[2016-10-12] MEDS: MAGNESIUM OXIDE 400 MG TABLET (FP) PO SCH (09:13)
[2016-10-12] MEDS: CITALOPRAM HYDROBROMIDE 10 MG TABLET (FP) PO SCH (09:13)
[2016-10-12] MEDS: PANTOPRAZOLE 40 MG TABLET (FP) PO SCH (09:13)
[2016-10-12] MEDS: METOPROLOL TARTRATE 25 MG TABLET (FP) PO SCH (09:13)
[2016-10-12] MEDS: CALCIUM 500MG/VIT-D 200 UNITS COMBO TABLET (FP) PO SCH (09:13)
[2016-10-12] MEDS: CEFTRIAXONE 50 ML IVPB SCH (09:14)
--- NOTE | 2016-10-12 10:36 | PN ---
Physical Exam: SUBJECTIVE: Patient seen and examined at bedside. Denies all c/o. Left wrist splint in place. OBJECTIVE: Vital Signs Period Temp Pulse Resp BP Sys/Barnard Pulse Ox Last 24 Hr 98.1 F-98.8 F 73-77 18-20 131-134/51-62 95 GENERAL: The patient is awake, alert, and fully oriented, in no acute distress. HEAD: Normal with no signs of trauma. EYES: PERRL, extraocular movements intact, sclera anicteric, conjunctiva clear. No ptosis. ENT: Ears normal, nares patent, oropharynx clear without exudates, moist mucous membranes. NECK: Trachea midline, full range of motion, supple. LUNGS: Breath sounds equal, clear to auscultation bilaterally, no wheezes, no crackles, no accessory muscle use. HEART: Regular rate and rhythm, S1, S2 without murmur, rub or gallop. ABDOMEN: Soft, nontender, nondistended, normoactive bowel sounds, no guarding, no rebound, no hepatosplenomegaly, no masses. EXTREMITIES: 2+ pulses, warm, well-perfused, no edema. Ecchymosis and swelling to left hand. NEUROLOGICAL: Cranial nerves II through XII grossly intact. Normal speech, gait steady. PSYCH: Normal mood, normal affect. SKIN: Warm, dry, normal turgor, no rashes or lesions noted Laboratory Results - last 24 hr 3 10/11/16 10/11/16 10/11/16 13:00 13:00 13:00 WBC Cancelled Corrected WBC (auto) Cancelled RBC Cancelled Hgb Cancelled Hct Cancelled MCV Cancelled MCHC Cancelled RDW Cancelled Plt Count Cancelled MPV Cancelled Neutrophils % Cancelled Lymphocytes % Cancelled Monocytes % Cancelled Eosinophils % Cancelled Basophils % Cancelled Differential Comment Cancelled Smudge Cells Cancelled Platelet Estimate Cancelled Platelet Comment Cancelled RBC Morphology Cancelled Sodium Cancelled Potassium Cancelled Chloride Cancelled Carbon Dioxide Cancelled Anion Gap Cancelled BUN Cancelled Creatinine Cancelled Creat Clearance w eGFR Random Glucose Cancelled Calcium Cancelled Phosphorus Cancelled Magnesium Cancelled Total Bilirubin AST ALT Alkaline Phosphatase Creatine Kinase Cancelled Troponin I Cancelled Total Protein Albumin 3 10/11/16 10/11/16 10/11/16 14:24 14:24 14:24 WBC 5.2 Corrected WBC (auto) RBC 4.24 Hgb 13.4 Hct 39.7 MCV 93.5 MCHC 33.6 RDW 12.4 Plt Count 223 MPV 7.9 Neutrophils % 56.2 Lymphocytes % 31.4 Monocytes % 9.6 Eosinophils % 1.8 Basophils % 1.0 Differential Comment Smudge Cells Platelet Estimate Platelet Comment RBC Morphology Sodium 140 Potassium 3.9 Chloride 104 Carbon Dioxide 28 Anion Gap 8 BUN 13 D Creatinine 0.7 Creat Clearance w eGFR > 60 Random Glucose 103 Calcium 9.3 Phosphorus 3.9 Magnesium 1.9 Total Bilirubin 0.7 D AST 22 ALT 13 Alkaline Phosphatase 42 Creatine Kinase 90 Troponin I < 0.03 L Total Protein 6.5 Albumin 3.6 3 10/12/16 07:55 WBC Corrected WBC (auto) RBC Hgb Hct MCV MCHC RDW Plt Count MPV Neutrophils % Lymphocytes % Monocytes % Eosinophils % Basophils % Differential Comment Smudge Cells Platelet Estimate Platelet Comment RBC Morphology Sodium Potassium Chloride Carbon Dioxide Anion Gap BUN Creatinine Creat Clearance w eGFR Random Glucose Calcium Phosphorus Magnesium Total Bilirubin AST ALT Alkaline Phosphatase Creatine Kinase 65 Troponin I < 0.03 L Total Protein Albumin Active Medications 3 Generic Name Dose Route Start Last Admin Trade Name Freq PRN Reason Stop Dose Admin Acetaminophen 650 mg 10/11/16 12:43 10/12/16 08:29 Tylenol - PO 650 mg Q4H PRN Administration FEVER OR PAIN Atorvastatin Calcium 20 mg 10/11/16 22:00 10/11/16 21:22 Lipitor - PO Not Given HS [facility] Calcium Carbonate/Cholecalciferol 1 tab 10/11/16 10:00 10/12/16 09:13 Os-Jozef 500+D - PO 1 tab BID AIME Administration Citalopram Hydrobromide 10 mg 10/11/16 10:00 10/12/16 09:13 Celexa - PO 10 mg DAILY AIME Administration Heparin Sodium (Porcine) 5,000 unit 10/11/16 06:00 10/12/16 07:01 Heparin - SQ 5,000 unit TID AIME Administration Ceftriaxone Sodium 50 mls @ 100 mls/hr 10/11/16 00:30 10/12/16 09:14 Rocephin 1gm Ivpb (Pre-Docked) IVPB 100 mls/hr DAILY AIME Administration Magnesium Oxide 400 mg 10/11/16 10:00 10/12/16 09:13 Mag-Ox - PO 400 mg DAILY AIME Administration Metoprolol Tartrate 25 mg 10/11/16 10:00 10/12/16 09:13 Lopressor - PO 25 mg BID AIME Administration Non-Formulary Medication 1 drop 10/11/16 05:25 Systane OU QID PRN dry eyes Pantoprazole Sodium 40 mg 10/11/16 10:00 10/12/16 09:13 Protonix - PO 40 mg DAILY AIME Administration ASSESSMENT/PLAN: A: 85 yo woman with syncopal episode 10/10 while walking her dog. Sinus pause present on EKG without any telemetry events since admission. P: 1. Syncope - troponin x 3 wnl - ekg reviewed, sinus rhythm less than 1 second pause, left axis deviation - tele- no events overnight - carotid dopplers- no evidence of hemodynamically significant stenosis - records obtained from pt's private repair specialist, Dr Dorado ([place], [place]), last lexiscan stress test 2013, no ischemia Echo (2012) diastolic dysfunction, mild mr & tr, lv WNL - cardiology- Orly cleared for d/c with cards f/u for echo and Holter or Loop recorder. 2. Hypertension - continue metropolol 25mg 3. Hyperlipidemia - continue lipitor 20mg 4. Metacarpal fracture - keep ulnar split in place, elevation - xray of left wrist, no fracture noted - prn tylenol - ortho (corado) cleared for d/c 5. UTI - urine cx- lactose fermenting gram negative bacilli - start Ceftin Visit type - Emergency Visit Emergency Visit: Yes ED Registration Date: 10/10/16 Care time: The patient presented to the Emergency Department on the above date and was hospitalized for further evaluation of their emergent condition. - New Patient This patient is new to me today: Yes Date on this admission: 10/13/16 - Critical Care Critical Care patient: No - Discharge Referral Referred to [facility] Med P.C.: No
--- NOTE | 2016-10-12 11:08 | DS ---
Physical Exam: SUBJECTIVE: Patient seen and examined at bedside. OBJECTIVE: Vital Signs Period Temp Pulse Resp BP Sys/Barnard Pulse Ox Last 24 Hr 98.1 F-98.8 F 73-77 18-20 131-134/51-62 95 PHYSICAL EXAM GENERAL: The patient is awake, alert, and fully oriented, in no acute distress. HEAD: Normal with no signs of trauma. EYES: PERRL, extraocular movements intact, sclera anicteric, conjunctiva clear. No ptosis. ENT: Ears normal, nares patent, oropharynx clear without exudates, moist mucous membranes. NECK: Trachea midline, full range of motion, supple. LUNGS: Breath sounds equal, clear to auscultation bilaterally, no wheezes, no crackles, no accessory muscle use. HEART: Regular rate and rhythm, S1, S2 without murmur, rub or gallop. ABDOMEN: Soft, nontender, nondistended, normoactive bowel sounds, no guarding, no rebound, no hepatosplenomegaly, no masses. EXTREMITIES: 2+ pulses, warm, well-perfused, no edema. Ecchymosis and swelling to left hand. NEUROLOGICAL: Cranial nerves II through XII grossly intact. Normal speech, gait steady. PSYCH: Normal mood, normal affect. SKIN: Warm, dry, normal turgor, no rashes or lesions noted LABS Laboratory Results - last 24 hr 3 10/11/16 10/11/16 10/11/16 13:00 13:00 13:00 WBC Cancelled Corrected WBC (auto) Cancelled RBC Cancelled Hgb Cancelled Hct Cancelled MCV Cancelled MCHC Cancelled RDW Cancelled Plt Count Cancelled MPV Cancelled Neutrophils % Cancelled Lymphocytes % Cancelled Monocytes % Cancelled Eosinophils % Cancelled Basophils % Cancelled Differential Comment Cancelled Smudge Cells Cancelled Platelet Estimate Cancelled Platelet Comment Cancelled RBC Morphology Cancelled Sodium Cancelled Potassium Cancelled Chloride Cancelled Carbon Dioxide Cancelled Anion Gap Cancelled BUN Cancelled Creatinine Cancelled Creat Clearance w eGFR Random Glucose Cancelled Calcium Cancelled Phosphorus Cancelled Magnesium Cancelled Total Bilirubin AST ALT Alkaline Phosphatase Creatine Kinase Cancelled Troponin I Cancelled Total Protein Albumin 3 10/11/16 10/11/16 10/11/16 14:24 14:24 14:24 WBC 5.2 Corrected WBC (auto) RBC 4.24 Hgb 13.4 Hct 39.7 MCV 93.5 MCHC 33.6 RDW 12.4 Plt Count 223 MPV 7.9 Neutrophils % 56.2 Lymphocytes % 31.4 Monocytes % 9.6 Eosinophils % 1.8 Basophils % 1.0 Differential Comment Smudge Cells Platelet Estimate Platelet Comment RBC Morphology Sodium 140 Potassium 3.9 Chloride 104 Carbon Dioxide 28 Anion Gap 8 BUN 13 D Creatinine 0.7 Creat Clearance w eGFR > 60 Random Glucose 103 Calcium 9.3 Phosphorus 3.9 Magnesium 1.9 Total Bilirubin 0.7 D AST 22 ALT 13 Alkaline Phosphatase 42 Creatine Kinase 90 Troponin I < 0.03 L Total Protein 6.5 Albumin 3.6 3 10/12/16 07:55 WBC Corrected WBC (auto) RBC Hgb Hct MCV MCHC RDW Plt Count MPV Neutrophils % Lymphocytes % Monocytes % Eosinophils % Basophils % Differential Comment Smudge Cells Platelet Estimate Platelet Comment RBC Morphology Sodium Potassium Chloride Carbon Dioxide Anion Gap BUN Creatinine Creat Clearance w eGFR Random Glucose Calcium Phosphorus Magnesium Total Bilirubin AST ALT Alkaline Phosphatase Creatine Kinase 65 Troponin I < 0.03 L Total Protein Albumin HOSPITAL COURSE: Date of Admission:10/10/16 Date of Discharge: 10/12/16 A: 85 yo woman with syncopal episode 10/10 while walking her dog. Sinus pause present on EKG without any telemetry events since admission. P: 1. 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 2. Hypertension - continue metropolol 25mg 3. Hyperlipidemia - continue lipitor 20mg 4. Metacarpal fracture - keep ulnar split in place, elevation - xray of left wrist, no fracture noted - prn tylenol - ortho ([facility]) cleared for d/c - f/u with ortho in 6 weeks 5. UTI - urine cx- lactose fermenting gram negative bacilli - start Ceftin as outpatient Minutes to complete discharge: 25 Discharge Summary Reason For Visit: SYNCOPE Current Active Problems Closed right hand fracture (Acute) Multiple contusions (Acute) Syncope (Acute) Condition: Stable - Instructions Diet, Activity, Other Instructions: Eat a well balanced low salt diet. Continue your home medications as prescribed. Take Ceftin as prescribed twice daily until all medication is finished. Keep well hydrated. Call your landscaping and groundskeeping laborer to schedule an appointment for ECHOCARDIOGRAM and Holter monitor. Call orthopedic doctor to make appointment to follow up on your hand fracture. Take Tylenol for pain as directed by roller mill operator. Referrals: STAFF,NOT ON [Primary Care Provider] - Disposition: HOME - Home Medications Comprehensive Discharge Medication List: Ambulatory Orders Lipitor 20 mg PO HS 10/10/16 Metoprolol Tartrate 25 mg PO BID 10/10/16 Restasis 1 drop PRN 10/10/16 Calcium Magnesium + D Tablet 1 tab PO DAILY 10/11/16 Citalopram HBr 10 mg PO DAILY 10/11/16 Omeprazole 40 mg PO DAILY 10/11/16 This patient is new to me today: Yes Date on this admission: 10/13/16 Emergency Visit: Yes ED Registration Date: 10/10/16 Care time: The patient presented to the Emergency Department on the above date and was hospitalized for further evaluation of their emergent condition. Critical Care patient: No - Discharge Referral Referred to [facility] Med P.C.: No
[2016-10-12 11:21] VITALS: BP 130/59; PULSE 80; TEMP 98.5
== END 2016-10-12 11:50 | disposition home or self-care (01) | DRG 312 ==
LOC: FER 19:50 → FM/S 23:18
PROVIDERS: ADMIT Internal Medicine; ATTEND Nurse Practitioner Family
DX: R55 Syncope and collapse (principal); N39.0 Urinary tract infection, site not specified; I10 Essential (primary) hypertension; E78.5 Hyperlipidemia, unspecified; F03.90 Unspecified dementia, unspecified severity, without behavioral disturbance, psychotic disturbance, mood disturbance, and anxiety; M81.0 Age-related osteoporosis without current pathological fracture; S62.326A Displaced fracture of shaft of fifth metacarpal bone, right hand, initial encounter for closed fracture; W19.XXXA Unspecified fall, initial encounter; Y93.9 Activity, unspecified; Y99.9 Unspecified external cause status; Y92.488 Other paved roadways as the place of occurrence of the external cause
CPT/HCPCS: 36415; 70110-TC; 70450-TC; 71010-TC; 73030-TC-LT; 73110-TC-LT; 73130-TC-RT; 80053; 81003; 81015; 82550; 83735; 84100; 84484; 85025; 87086; 87186; 93005; 93306-TC; 93880-TC; 97116-GP; 99284-25; J1644